=== PATIENT | female | born 1950 | race Caucasian/White ===

== ENCOUNTER 2017-11-04 06:40 | Day surgery (SDC) | payer OTHER ==
[~2017-11-04 06:40] MED LIST: ADVAIR 100-501 EACH IH; LIPITOR20 MG PO; VERAPAMIL ER120 MG PO
== END 2017-11-04 11:25 | disposition home or self-care (01) ==
LOC: AMB-ENDOS 06:40
DX: K62.1 Rectal polyp (principal); Z87.19 Personal history of other diseases of the digestive system

== ENCOUNTER 2017-11-04 11:34 | Outpatient (CLI) | payer OTHER | END 2017-11-04 17:17 | disposition home or self-care (01) | LOC: TOM 11:34 | DX: K62.1 Rectal polyp (principal); K57.32 Diverticulitis of large intestine without perforation or abscess without bleeding ==

== ENCOUNTER 2017-12-28 07:15 | Inpatient (IN) | payer OTHER ==
[~2017-12-28] VITALS: Ht 167.6 cm; Wt 72.6 kg
[2017-12-28] MEDS ORDERED: OMEPRAZOLE20 MG PO (08:40)
[2017-12-28] MEDS ORDERED: DONEPEZIL HCL10 MG PO (08:41)
== END 2018-01-04 10:12 | disposition home or self-care (01) | DRG 331 ==
LOC: O/R 01-01 06:48 → SURH 01-01 06:48
PROVIDERS: Colon & Rectal Surgery
PROC: 0D7 Gastrointestinal System, Dilation (ICD-10-PCS; 2018-01-01)
PROC: 0DJD8ZZ Inspection of Lower Intestinal Tract, Via Natural or Artificial Opening Endoscopic (ICD-10-PCS; 2018-01-01)
PROC: 3E0F7GC Introduction of Other Therapeutic Substance into Respiratory Tract, Via Natural or Artificial Opening (ICD-10-PCS; 2018-01-01)
PROC: 0DTN4ZZ Resection of Sigmoid Colon, Percutaneous Endoscopic Approach (ICD-10-PCS; principal; 2018-01-01 13:45)
DX: K57.32 Diverticulitis of large intestine without perforation or abscess without bleeding (principal); K62.4 Stenosis of anus and rectum; I10 Essential (primary) hypertension; J45.998 Other asthma; J44.9 Chronic obstructive pulmonary disease, unspecified; E78.4 Other hyperlipidemia; Z86.73 Personal history of transient ischemic attack (TIA), and cerebral infarction without residual deficits

== ENCOUNTER 2018-06-23 14:05 | Emergency (ER) | payer OTHER ==
[~2018-06-23] VITALS: Ht 167.6 cm; Wt 63.5 kg
[~2018-06-23 14:05] MED LIST changes: +DONEPEZIL HCL10 MG PO; +OMEPRAZOLE20 MG PO
== END 2018-06-23 22:45 | disposition home or self-care (01) ==
LOC: ER 14:05
DX: K29.60 Other gastritis without bleeding (principal); K44.9 Diaphragmatic hernia without obstruction or gangrene; R10.84 Generalized abdominal pain

== ENCOUNTER 2018-09-15 12:12 | Outpatient (CLI) | payer OTHER | END 2018-09-15 12:20 | disposition home or self-care (01) | LOC: LAB 12:12 | DX: I10 Essential (primary) hypertension (principal); E78.89 Other lipoprotein metabolism disorders; E03.8 Other specified hypothyroidism; R73.09 Other abnormal glucose; Z12.11 Encounter for screening for malignant neoplasm of colon; E83.52 Hypercalcemia ==

== ENCOUNTER → 2018-09-16 11:34 | Outpatient (CLI) | payer OTHER | END | disposition home or self-care (01) | LOC: LAB 11:34 | DX: I10 Essential (primary) hypertension (principal); E03.8 Other specified hypothyroidism; R73.09 Other abnormal glucose; Z12.11 Encounter for screening for malignant neoplasm of colon; E83.52 Hypercalcemia ==

== ENCOUNTER 2019-01-05 06:15 | Day surgery (SDC) | payer OTHER | END 2019-01-05 09:45 | disposition home or self-care (01) | LOC: AMB-ENDOS 06:15 | DX: D12.3 Benign neoplasm of transverse colon (principal); Z12.11 Encounter for screening for malignant neoplasm of colon ==